=== PATIENT | female | born 1965 | race Caucasian/White ===

== ENCOUNTER 2023-05-12 14:52 | Inpatient (IN) | payer MEDICAID ==
[~2023-05-12] VITALS: Ht 160 cm; Wt 61.7 kg
[2023-05-12 15:45] LABS: BASOPHILS % 0.2 % (0.0-2.0); DIFFERENTIAL COMMENT 0; HEMATOCRIT. 40.7 % (36.0-48.0); HEMOGLOBIN. 13.7 g/dL (12.0-16.0); MEAN CORPUSCULAR HEMOGLOBIN 35.6 pg (28.0-32.0); MEAN CORPUSCULAR HGB CONC 33.6 g/dL (31.0-37.0); MEAN CORPUSCULAR VOLUME 105.9 fL (81.0-99.0); MEAN PLATELET VOLUME 8.6 fl (7.4-10.4); MONOCYTES % 11.4 % (2.0-8.0); NEUTROPHILS % 74.4 % (40.0-76.0); PLATELET 171 x1000/uL (130-400); RED BLOOD CELL COUNT 3.84 mill/uL (4.2-5.4); RED CELL DISTRIBUTION WIDTH 13.9 % (11.6-14.6); WHITE BLOOD COUNT 5.5 x1000/uL (4.5-11.0)
[2023-05-12 15:53] LABS: CHLORIDE 102 mEq/L (98-107); INDEX HEMOLYSI 1 (1-3); INDEX ICTERIC 1 (1-4); INDEX LIPEMIC 1 (1-3); POTASSIUM 3.5 mEq/L (3.5-5.1); SODIUM 132 mEq/L (136-145)
[2023-05-12 16:02] LABS: ALANINE AMINOTRANSFERASE 66 IU/L (13-61); ALBUMIN 2.7 g/dL (3.4-5.0); ASPARTATE AMINOTRANSFERASE 100 IU/L (15-37); BILIRUBIN TOTAL 0.4 mg/dL (0.1-1.0); CARBON DIOXIDE 22 mEq/L (21-32); CREATININE 0.7 mg/dL (0.6-1.3); GLUCOSE 210 mg/dL (70-105); NT PRO B-TYPE NATRIURETIC PEP 226 pg/mL (5-125); PROTEIN TOTAL 7.4 g/dL (6.0-8.3); TROPONIN I HIGH SENSITIVITY 7 ng/L (<54); UREA NITROGEN BLOOD 11 mg/dL (7-21)
[2023-05-12] MEDS ORDERED: AZITHROMYCIN 500 MG in DEXT 5% WATER 250 ML IV SCH ×2 (18:00→20:30)
[2023-05-12] MEDS ORDERED: CEFTRIAXONE 1GM PREMIX 50 ML IV ONE (18:00)
[2023-05-12] MEDS ORDERED: AZITHROMYCIN 500MG/250ML 250 ML IV SCH (18:15)
[2023-05-12] MEDS ORDERED: LACTATED RINGERS 1,000 ML IV SCH (18:15)
[2023-05-12] MEDS ORDERED: ACETAMINOPHEN 650MG SUPP PR PRN ×2 (20:15)
[2023-05-12] MEDS ORDERED: PANTOPRAZOLE SODIUM 40 MG/VIAL IV NR (20:15)
[2023-05-12] MEDS ORDERED: MAGNESIUM/ALUMINUM HYDROXIDE/SIMETHICONE 30ML UDC PO PRN (20:15)
[2023-05-12] MEDS ORDERED: CLONIDINE 0.1MG TABLET PO PRN (20:15)
[2023-05-12] MEDS ORDERED: DOCUSATE SODIUM 100MG CAPSULE PO PRN (20:15)
[2023-05-12] MEDS ORDERED: DEXTROSE 50% WATER 50ML SYRINGE IV PRN (20:30)
[2023-05-12] MEDS: SODIUM CHLORIDE 0.9% 1,000 ML IV SCH ×2 (20:45→21:17)
[2023-05-12] MEDS: DEXAMETHASONE 10 MG/ML VIAL IV SCH (21:07)
[2023-05-12] MEDS: BLOOD SUGAR DIAGNOSTIC STRIP TEST SCH (21:16)
[2023-05-12] MEDS: ENOXAPARIN 80MG/0.8ML SYR SUBCUT SCH (21:35)
[2023-05-12] MEDS: INSULIN LISPRO 100 UNITS/ML SUBCUT SCH (21:47)
[2023-05-12 21:55] LABS: INDEX HEMOLYSI 1 (1-3)
[2023-05-12 22:04] LABS: CREATINE KINASE 103 IU/L (26-192); CREATINE KINASE MB FRACTION < 1.0 ng/mL (0.5-3.6); D-DIMER 2.17 mg/L FEU (<0.50); PARTIAL THROMBOPLASTIN TIME 30.2 sec (23.4-31.0); PROTHROMBIN TIME 10.5 sec (9.6-11.0); TROPONIN I HIGH SENSITIVITY 7 ng/L (<54)
[2023-05-12 22:07] LABS: LACTIC ACID 4.7 mmol/L (0.4-2.0)
[2023-05-13] VITALS (7 sets, daily range): BP systolic 110–136; BP diastolic 58–71; PULSE 60–80; RESP 16–22; TEMP 96–98.1; O2SAT 95
[2023-05-13] MEDS: IPRATROPIUM/ALBUTEROL 0.5-3(2.5)MG/3ML NEB HHN SCH ×2 (02:01→09:18)
[2023-05-13 06:42] LABS: BG CARBOXYHEMOGLOBIN 0.7 % (0.5-1.5); BG DEOXYHEMOGLOBIN 5.9 % (0.0-5.0); BG HCO3 ACT 17.1 mmol/L (22.0-26.0); BG METHEMOGLOBIN 0.2 % (0.0-1.5); BG OXYHEMOGLOBIN 93.2 % (94.0-97.0); BG PCO2 30.8 mmHg (35.0-45.0); BG PH 7.363 (7.350-7.450); BG SAMPLE SITE RIGHT BRACHIAL; BG TOTAL HEMOGLOBIN 14.4 g/dL (12.0-18.0); BG VENT MODE NASAL CANNULA
[2023-05-13] MEDS: BLOOD SUGAR DIAGNOSTIC STRIP TEST SCH ×4 (07:48→21:00)
[2023-05-13] MEDS: ENOXAPARIN 80MG/0.8ML SYR SUBCUT SCH (08:37)
[2023-05-13] MEDS: DEXAMETHASONE 10 MG/ML VIAL IV SCH (08:37)
[2023-05-13] MEDS: INSULIN LISPRO 100 UNITS/ML SUBCUT SCH ×4 (08:54→21:22)
[2023-05-13 09:25] LABS: BASOPHILS % 0.1 % (0.0-2.0); DIFFERENTIAL COMMENT 0; HEMATOCRIT. 41.8 % (36.0-48.0); HEMOGLOBIN. 14.3 g/dL (12.0-16.0); LYMPHOCYTES % 17.2 % (20.0-50.0); MEAN CORPUSCULAR HEMOGLOBIN 36.3 pg (28.0-32.0); MEAN CORPUSCULAR HGB CONC 34.4 g/dL (31.0-37.0); MEAN CORPUSCULAR VOLUME 105.5 fL (81.0-99.0); MEAN PLATELET VOLUME 8.8 fl (7.4-10.4); MONOCYTES % 6.7 % (2.0-8.0); PLATELET 167 x1000/uL (130-400); RED BLOOD CELL COUNT 3.96 mill/uL (4.2-5.4); WHITE BLOOD COUNT 3.3 x1000/uL (4.5-11.0)
[2023-05-13 09:44] LABS: CHLORIDE 103 mEq/L (98-107); INDEX HEMOLYSI 1 (1-3); INDEX ICTERIC 1 (1-4); INDEX LIPEMIC 1 (1-3); POTASSIUM 4.5 mEq/L (3.5-5.1); SODIUM 133 mEq/L (136-145)
[2023-05-13 10:00] LABS: ALANINE AMINOTRANSFERASE 61 IU/L (13-61); ALBUMIN 2.6 g/dL (3.4-5.0); ASPARTATE AMINOTRANSFERASE 102 IU/L (15-37); BILIRUBIN TOTAL 0.4 mg/dL (0.1-1.0); CALCIUM 8.1 mg/dL (8.5-10.1); CARBON DIOXIDE 22 mEq/L (21-32); CHOLESTEROL 154 mg/dL (<200); CREATINE KINASE 101 IU/L (26-192); CREATINE KINASE MB FRACTION < 1.0 ng/mL (0.5-3.6); CREATININE 0.7 mg/dL (0.6-1.3); GLUCOSE 226 mg/dL (70-105); HDL CHOLESTEROL 80 mg/dL (40-59); LDL CHOLESTEROL 75 mg/dL (5-100); PROTEIN TOTAL 7.5 g/dL (6.0-8.3); T4 FREE 1.17 ng/dL (0.76-1.46); THYROID STIMULATING HORMONE 0.33 uIU/mL (0.36-3.74); TRIGLYCERIDE 76 mg/dL (0-150); TROPONIN I HIGH SENSITIVITY 6 ng/L (<54); UREA NITROGEN BLOOD 12 mg/dL (7-21)
[2023-05-13] MEDS ORDERED: IPRATROPIUM/ALBUTEROL 0.5-3(2.5)MG/3ML NEB HHN PRN (13:00)
[2023-05-13] MEDS ORDERED: CEFTRIAXONE 1,000 MG in DEXTROSE 5% WATER 50 ML IV SCH ×2 (17:00→18:00)
[2023-05-13] MEDS ORDERED: AZITHROMYCIN 500 MG in DEXT 5% WATER 250 ML IV SCH (18:00)
[2023-05-13] MEDS ORDERED: AZITHROMYCIN 500MG/250ML 250 ML IV SCH (18:15)
[2023-05-13] MEDS: HYDROCODONE/ACETAMINOPHEN 5/325MG TABLET PO PRN (19:03)
[2023-05-13] MEDS ORDERED: AMIT10TA7 GT (19:08)
[2023-05-13] MEDS ORDERED: METF-873 PO (19:08)
[2023-05-13] MEDS ORDERED: BENA20TA77 PO (19:08)
[2023-05-13] MEDS ORDERED: CELE200C PO (19:08)
[2023-05-13] MEDS ORDERED: VANCOMYCIN 1.25GM PMX (XELLIA) 250 ML IV NR (20:30)
[2023-05-14] VITALS: BP 119/80; PULSE 61; RESP 18; TEMP 96.9
[2023-05-14] MEDS ORDERED: ZOLPIDEM TARTRATE 5MG TABLET PO NR (00:30)
[2023-05-14 04:10] VITALS: BP 110/63; PULSE 76; RESP 19; TEMP 97.1
[2023-05-14] MEDS: BLOOD SUGAR DIAGNOSTIC STRIP TEST SCH ×4 (06:46→20:41)
[2023-05-14 07:18] LABS: BASOPHILS % 0.1 % (0.0-2.0); DIFFERENTIAL COMMENT 0; HEMATOCRIT. 41.2 % (36.0-48.0); HEMOGLOBIN. 14.1 g/dL (12.0-16.0); LYMPHOCYTES % 9.4 % (20.0-50.0); MEAN CORPUSCULAR HGB CONC 34.2 g/dL (31.0-37.0); MEAN CORPUSCULAR VOLUME 105.1 fL (81.0-99.0); MEAN PLATELET VOLUME 8.9 fl (7.4-10.4); MONOCYTES % 10.3 % (2.0-8.0); NEUTROPHILS % 80.2 % (40.0-76.0); PLATELET 183 x1000/uL (130-400); RED BLOOD CELL COUNT 3.92 mill/uL (4.2-5.4); RED CELL DISTRIBUTION WIDTH 13.9 % (11.6-14.6); WHITE BLOOD COUNT 10.5 x1000/uL (4.5-11.0)
[2023-05-14 08:00] VITALS: BP 114/60; PULSE 85; RESP 20; TEMP 96.4
[2023-05-14] MEDS ORDERED: VANCOMYCIN 750MG PREMIX 150 ML IV SCH (08:00)
[2023-05-14 08:10] LABS: CHLORIDE 105 mEq/L (98-107); INDEX HEMOLYSI 1 (1-3); INDEX ICTERIC 1 (1-4); INDEX LIPEMIC 1 (1-3); POTASSIUM 4.4 mEq/L (3.5-5.1); SODIUM 139 mEq/L (136-145)
[2023-05-14] MEDS: INSULIN LISPRO 100 UNITS/ML SUBCUT SCH ×4 (08:10→20:41)
[2023-05-14 08:21] LABS: ALANINE AMINOTRANSFERASE 59 IU/L (13-61); ALBUMIN 2.6 g/dL (3.4-5.0); ASPARTATE AMINOTRANSFERASE 110 IU/L (15-37); BILIRUBIN TOTAL 0.6 mg/dL (0.1-1.0); CALCIUM 8.5 mg/dL (8.5-10.1); CARBON DIOXIDE 22 mEq/L (21-32); CREATININE 0.7 mg/dL (0.6-1.3); GLUCOSE 132 mg/dL (70-105); PROTEIN TOTAL 7.1 g/dL (6.0-8.3); UREA NITROGEN BLOOD 15 mg/dL (7-21)
[2023-05-14 08:29] LABS: CLARITY URINE CLEAR (CLEAR); COLOR URINE YELLOW (YELLOW); GLUCOSE URINE NEGATIVE (NEGATIVE); KETONES URINE NEGATIVE (NEGATIVE); LEUKOCYTE ESTERASE URINE NEGATIVE (NEGATIVE); NITRITE URINE NEGATIVE (NEGATIVE); OCCULT BLOOD URINE NEGATIVE (NEGATIVE); PH URINE 6.5 (4.5-8.0); PROTEIN URINE NEGATIVE (NEGATIVE); SPECIFIC GRAVITY URINE 1.024 (1.005-1.030); UROBILINOGEN URINE 0.2 E.U./dL (0.2-1.0)
[2023-05-14 08:58] LABS: PHOSPHORUS 3.4 mg/dL (2.5-4.9)
[2023-05-14 09:00] LABS: *AMPHETAMINES SCREEN URINE NEGATIVE (NEGATIVE); *BARBITURATES SCREEN URINE NEGATIVE (NEGATIVE); *BENZODIAZEPINES SCREEN URINE NEGATIVE (NEGATIVE); *COCAINE SCREEN URINE NEGATIVE (NEGATIVE); CANNABINOID URINE SCREEN NEGATIVE (NEGATIVE); ECSTASY MDMA SCREEN URINE NEGATIVE (NEGATIVE); METHADONE URINE SCREEN NEGATIVE (NEGATIVE); OPIATES URINE SCREEN PRESUMTIVE POSITIVE (NEGATIVE); PHENCYCLIDINE URINE SCREEN NEGATIVE (NEGATIVE)
[2023-05-14] MEDS: DEXAMETHASONE 10 MG/ML VIAL IV SCH (09:17)
[2023-05-14] MEDS: ENOXAPARIN 40MG/0.4ML SYR SUBCUT SCH (09:18)
[2023-05-14 12:00] VITALS: BP 119/61; PULSE 78; RESP 20; TEMP 96.4
[2023-05-14 16:00] VITALS: BP 122/63; PULSE 79; RESP 20; TEMP 97.2
[2023-05-14 18:15] LABS: FOLIC ACID (FOLATE) SERUM 18.5 ng/mL (>5.38)
[2023-05-14 20:00] VITALS: BP 111/58; PULSE 72; RESP 19; TEMP 98.5
[2023-05-14] MEDS: HYDROCODONE/ACETAMINOPHEN 5/325MG TABLET PO PRN (20:16)
[2023-05-14] MEDS: FAMOTIDINE 20MG TABLET PO SCH (20:16)
[2023-05-14] MEDS: GUAIFENESIN 200MG/10ML SUGAR FREE UDC PO PRN (20:40)
[2023-05-15] VITALS: BP 120/62; PULSE 67; RESP 18; TEMP 97.6
[2023-05-15] MEDS: BENZONATATE 100MG CAPSULE PO PRN ×2 (01:58→19:02)
[2023-05-15 04:00] VITALS: BP 107/50; PULSE 68; RESP 18; TEMP 97.8
[2023-05-15] MEDS: HYDROCODONE/ACETAMINOPHEN 5/325MG TABLET PO PRN ×2 (06:18→20:56)
[2023-05-15] MEDS: BLOOD SUGAR DIAGNOSTIC STRIP TEST SCH ×4 (06:46→21:24)
[2023-05-15 08:00] VITALS: BP 97/56; PULSE 86; RESP 20; TEMP 98.1
[2023-05-15] MEDS: INSULIN LISPRO 100 UNITS/ML SUBCUT SCH ×4 (08:10→21:53)
[2023-05-15] MEDS: FAMOTIDINE 20MG TABLET PO SCH ×2 (09:33→20:56)
[2023-05-15] MEDS: ENOXAPARIN 40MG/0.4ML SYR SUBCUT SCH (09:34)
[2023-05-15] MEDS: DEXAMETHASONE 10 MG/ML VIAL IV SCH (09:34)
[2023-05-15 10:01] LABS: BG BASE EXCESS -0.3 mmol/L (-2.0-2.0); BG CARBOXYHEMOGLOBIN 0.5 % (0.5-1.5); BG FRACTION INSPIRED OXYGEN 44; BG HCO3 ACT 22.7 mmol/L (22.0-26.0); BG OXYGEN SATURATION 76.9 % (92.0-98.5); BG OXYHEMOGLOBIN 76.5 % (94.0-97.0); BG PCO2 32.4 mmHg (35.0-45.0); BG PH 7.464 (7.350-7.450); BG PO2 39.7 mmHg (75.0-100.0); BG SAMPLE SITE RIGHT RADIAL; BG TOTAL HEMOGLOBIN 13.3 g/dL (12.0-18.0); BG VENT MODE NASAL CANNULA
[2023-05-15] MEDS ORDERED: FUROSEMIDE 20MG/2ML VIAL IVP SCH (10:30)
[2023-05-15 12:00] VITALS: BP 115/61; PULSE 70; RESP 20; TEMP 98.1
[2023-05-15 12:09] LABS: BG BASE EXCESS 1.7 mmol/L (-2.0-2.0); BG CARBOXYHEMOGLOBIN 0.7 % (0.5-1.5); BG DEOXYHEMOGLOBIN 7.5 % (0.0-5.0); BG HCO3 ACT 25.4 mmol/L (22.0-26.0); BG METHEMOGLOBIN 0.1 % (0.0-1.5); BG OXYGEN SATURATION 92.4 % (92.0-98.5); BG OXYHEMOGLOBIN 91.7 % (94.0-97.0); BG PCO2 37.1 mmHg (35.0-45.0); BG PH 7.453 (7.350-7.450); BG PO2 65.7 mmHg (75.0-100.0); BG SAMPLE SITE RIGHT RADIAL; BG TOTAL HEMOGLOBIN 14.5 g/dL (12.0-18.0); BG VENT MODE MASK - NRB
[2023-05-15] MEDS: METHYLPREDNISOLONE SOD SUCC 125MG/2ML (ACT-O-VIAL) IV SCH ×2 (13:55→20:57)
[2023-05-15] MEDS: GUAIFENESIN 200MG/10ML SUGAR FREE UDC PO PRN (13:55)
[2023-05-15 14:04] LABS: HEMATOCRIT. 41.9 % (36.0-48.0); HEMOGLOBIN. 14.2 g/dL (12.0-16.0); MEAN CORPUSCULAR HEMOGLOBIN 35.3 pg (28.0-32.0); MEAN CORPUSCULAR HGB CONC 33.9 g/dL (31.0-37.0); MEAN CORPUSCULAR VOLUME 104.2 fL (81.0-99.0); MEAN PLATELET VOLUME 9.7 fl (7.4-10.4); PLATELET 173 x1000/uL (130-400); RED BLOOD CELL COUNT 4.02 mill/uL (4.2-5.4); RED CELL DISTRIBUTION WIDTH 13.8 % (11.6-14.6); WHITE BLOOD COUNT 10.1 x1000/uL (4.5-11.0)
[2023-05-15 14:22] LABS: DIFFERENTIAL COMMENT 1
[2023-05-15] MEDS ORDERED: NALOXONE HCL 0.4MG/ML VIAL IV PRN (15:00)
[2023-05-15 15:32] LABS: CHLORIDE 105 mEq/L (98-107); INDEX HEMOLYSI 1 (1-3); INDEX ICTERIC 1 (1-4); INDEX LIPEMIC 1 (1-3); SODIUM 139 mEq/L (136-145)
[2023-05-15 16:00] VITALS: BP 120/67; PULSE 77; RESP 20; TEMP 98
[2023-05-15 16:13] LABS: ALANINE AMINOTRANSFERASE 63 IU/L (13-61); ALBUMIN 2.7 g/dL (3.4-5.0); ASPARTATE AMINOTRANSFERASE 102 IU/L (15-37); BILIRUBIN TOTAL 0.8 mg/dL (0.1-1.0); CALCIUM 8.1 mg/dL (8.5-10.1); CARBON DIOXIDE 26 mEq/L (21-32); CREATININE 0.6 mg/dL (0.6-1.3); GLUCOSE 188 mg/dL (70-105); PROTEIN TOTAL 7.3 g/dL (6.0-8.3); UREA NITROGEN BLOOD 15 mg/dL (7-21)
[2023-05-15 20:00] VITALS: BP 122/53; PULSE 68; RESP 18; TEMP 97.7
[2023-05-16] VITALS (12 sets, daily range): BP systolic 107–144; BP diastolic 47–89; PULSE 58–68; RESP 13–31; TEMP 96.3–98.1; O2SAT 94
[2023-05-16 04:08] LABS: PLATELET ESTIMATE NORMAL
[2023-05-16] MEDS: ONDANSETRON HCL 4MG/2ML INJ IV PRN (04:23)
[2023-05-16] MEDS: HYDROCODONE/ACETAMINOPHEN 5/325MG TABLET PO PRN (04:23)
[2023-05-16 06:40] LABS: HEMATOCRIT. 38.2 % (36.0-48.0); HEMOGLOBIN. 13.1 g/dL (12.0-16.0); MEAN CORPUSCULAR HEMOGLOBIN 35.5 pg (28.0-32.0); MEAN CORPUSCULAR HGB CONC 34.2 g/dL (31.0-37.0); MEAN CORPUSCULAR VOLUME 103.8 fL (81.0-99.0); MEAN PLATELET VOLUME 9.5 fl (7.4-10.4); PLATELET 160 x1000/uL (130-400); RED BLOOD CELL COUNT 3.68 mill/uL (4.2-5.4); RED CELL DISTRIBUTION WIDTH 13.6 % (11.6-14.6); WHITE BLOOD COUNT 9.5 x1000/uL (4.5-11.0)
[2023-05-16 06:43] LABS: DIFFERENTIAL COMMENT 1
[2023-05-16] MEDS: INSULIN LISPRO 100 UNITS/ML SUBCUT SCH ×4 (06:52→21:00)
[2023-05-16] MEDS: METHYLPREDNISOLONE SOD SUCC 125MG/2ML (ACT-O-VIAL) IV SCH ×3 (06:52→21:11)
[2023-05-16 06:54] LABS: CHLORIDE 102 mEq/L (98-107); INDEX HEMOLYSI 1 (1-3); INDEX ICTERIC 1 (1-4); INDEX LIPEMIC 1 (1-3); POTASSIUM 4.1 mEq/L (3.5-5.1); SODIUM 137 mEq/L (136-145)
[2023-05-16] MEDS: BLOOD SUGAR DIAGNOSTIC STRIP TEST SCH ×4 (06:54→21:12)
[2023-05-16 07:04] LABS: ALANINE AMINOTRANSFERASE 58 IU/L (13-61); ALBUMIN 2.5 g/dL (3.4-5.0); ASPARTATE AMINOTRANSFERASE 76 IU/L (15-37); CALCIUM 7.8 mg/dL (8.5-10.1); CARBON DIOXIDE 24 mEq/L (21-32); CREATININE 0.5 mg/dL (0.6-1.3); GLUCOSE 223 mg/dL (70-105); PROTEIN TOTAL 6.7 g/dL (6.0-8.3); UREA NITROGEN BLOOD 16 mg/dL (7-21)
[2023-05-16 09:09] LABS: BG BASE EXCESS 0.8 mmol/L (-2.0-2.0); BG CARBOXYHEMOGLOBIN 0.5 % (0.5-1.5); BG DEOXYHEMOGLOBIN 5.4 % (0.0-5.0); BG FRACTION INSPIRED OXYGEN 100; BG HCO3 ACT 25.1 mmol/L (22.0-26.0); BG METHEMOGLOBIN 0.1 % (0.0-1.5); BG OXYGEN SATURATION 94.6 % (92.0-98.5); BG PCO2 39.1 mmHg (35.0-45.0); BG PH 7.426 (7.350-7.450); BG PO2 76.9 mmHg (75.0-100.0); BG SAMPLE SITE RIGHT RADIAL; BG TOTAL HEMOGLOBIN 13.6 g/dL (12.0-18.0); BG VENT MODE MASK - NRB
[2023-05-16] MEDS: FAMOTIDINE 20MG TABLET PO SCH ×2 (09:43→21:11)
[2023-05-16] MEDS: ENOXAPARIN 40MG/0.4ML SYR SUBCUT SCH (09:44)
[2023-05-16] MEDS: INSULIN GLARGINE 100 UNITS/ML SUBCUT SCH (10:00)
[2023-05-16 10:35] LABS: PLATELET ESTIMATE NORMAL
[2023-05-16] MEDS: BENZONATATE 100MG CAPSULE PO PRN (13:37)
[2023-05-16] MEDS ORDERED: LOPERAMIDE HCL 2MG CAPSULE PO NR (13:45)
[2023-05-16] MEDS ORDERED: FUROSEMIDE 40MG/4ML VIAL IVP NR (13:45)
[2023-05-16 14:04] LABS: BG BASE EXCESS -0.1 mmol/L (-2.0-2.0); BG CARBOXYHEMOGLOBIN 0.5 % (0.5-1.5); BG DEOXYHEMOGLOBIN 11.3 % (0.0-5.0); BG HCO3 ACT 25.4 mmol/L (22.0-26.0); BG METHEMOGLOBIN 0.1 % (0.0-1.5); BG OXYGEN SATURATION 88.6 % (92.0-98.5); BG OXYHEMOGLOBIN 88.1 % (94.0-97.0); BG PCO2 44.6 mmHg (35.0-45.0); BG PH 7.374 (7.350-7.450); BG PO2 60.9 mmHg (75.0-100.0); BG SAMPLE SITE RIGHT RADIAL; BG TOTAL HEMOGLOBIN 14.4 g/dL (12.0-18.0); BG VENT MODE MASK - NRB
[2023-05-16 18:02] LABS: BG BASE EXCESS 4.1 mmol/L (-2.0-2.0); BG CARBOXYHEMOGLOBIN 0.6 % (0.5-1.5); BG DEOXYHEMOGLOBIN 12.1 % (0.0-5.0); BG FRACTION INSPIRED OXYGEN 100; BG HCO3 ACT 28.1 mmol/L (22.0-26.0); BG METHEMOGLOBIN 0.3 % (0.0-1.5); BG OXYGEN SATURATION 87.8 % (92.0-98.5); BG PH 7.465 (7.350-7.450); BG PO2 54.1 mmHg (75.0-100.0); BG SAMPLE SITE LEFT RADIAL; BG TOTAL HEMOGLOBIN 14.4 g/dL (12.0-18.0); BG VENT MODE MASK - NRB
[2023-05-16] MEDS: KETOROLAC 15MG/ML VIAL IV PRN (18:34)
[2023-05-16] MEDS: BUDESONIDE 0.5MG/2ML NEB HHN SCH (21:23)
[2023-05-17] VITALS (80 sets, daily range): BP systolic 74–150; BP diastolic 48–130; PULSE 50–91; RESP 12–39; TEMP 98.3–100.2; O2SAT 87
[2023-05-17 05:23] LABS: HEMATOCRIT. 37.7 % (36.0-48.0); HEMOGLOBIN. 12.9 g/dL (12.0-16.0); MEAN CORPUSCULAR HEMOGLOBIN 35.4 pg (28.0-32.0); MEAN CORPUSCULAR HGB CONC 34.4 g/dL (31.0-37.0); MEAN CORPUSCULAR VOLUME 102.9 fL (81.0-99.0); MEAN PLATELET VOLUME 9.2 fl (7.4-10.4); PLATELET 155 x1000/uL (130-400); RED BLOOD CELL COUNT 3.66 mill/uL (4.2-5.4); WHITE BLOOD COUNT 9.3 x1000/uL (4.5-11.0)
[2023-05-17 06:33] LABS: DIFFERENTIAL COMMENT 1
[2023-05-17 06:35] LABS: CHLORIDE 100 mEq/L (98-107); INDEX HEMOLYSI 1 (1-3); INDEX ICTERIC 1 (1-4); INDEX LIPEMIC 1 (1-3); POTASSIUM 4.1 mEq/L (3.5-5.1); SODIUM 134 mEq/L (136-145)
[2023-05-17] MEDS: BLOOD SUGAR DIAGNOSTIC STRIP TEST SCH ×4 (06:40→21:42)
[2023-05-17] MEDS: METHYLPREDNISOLONE SOD SUCC 125MG/2ML (ACT-O-VIAL) IV SCH ×3 (06:49→20:33)
[2023-05-17] MEDS: INSULIN LISPRO 100 UNITS/ML SUBCUT SCH ×4 (06:50→21:51)
[2023-05-17 06:55] LABS: ALANINE AMINOTRANSFERASE 55 IU/L (13-61); ALBUMIN 2.4 g/dL (3.4-5.0); ASPARTATE AMINOTRANSFERASE 50 IU/L (15-37); BILIRUBIN TOTAL 0.7 mg/dL (0.1-1.0); CALCIUM 7.5 mg/dL (8.5-10.1); CARBON DIOXIDE 30 mEq/L (21-32); CREATININE 0.8 mg/dL (0.6-1.3); GLUCOSE 258 mg/dL (70-105); PROTEIN TOTAL 6.8 g/dL (6.0-8.3); UREA NITROGEN BLOOD 27 mg/dL (7-21)
[2023-05-17] MEDS: BUDESONIDE 0.5MG/2ML NEB HHN SCH ×2 (08:25→21:29)
[2023-05-17 08:36] LABS: PLATELET ESTIMATE NORMAL
[2023-05-17] MEDS: FAMOTIDINE 20MG TABLET PO SCH ×2 (09:02→20:33)
[2023-05-17] MEDS: ENOXAPARIN 40MG/0.4ML SYR SUBCUT SCH (09:02)
[2023-05-17] MEDS: INSULIN GLARGINE 100 UNITS/ML SUBCUT SCH (09:03)
[2023-05-17 10:42] LABS: BG BASE EXCESS 3.7 mmol/L (-2.0-2.0); BG CARBOXYHEMOGLOBIN 0.4 % (0.5-1.5); BG DEOXYHEMOGLOBIN 11.2 % (0.0-5.0); BG FRACTION INSPIRED OXYGEN 100; BG HCO3 ACT 28.2 mmol/L (22.0-26.0); BG METHEMOGLOBIN 0.2 % (0.0-1.5); BG OXYGEN SATURATION 88.7 % (92.0-98.5); BG OXYHEMOGLOBIN 88.2 % (94.0-97.0); BG PH 7.445 (7.350-7.450); BG PO2 56.4 mmHg (75.0-100.0); BG SAMPLE SITE RIGHT RADIAL; BG VENT MODE MASK - NRB
[2023-05-17] MEDS ORDERED: FUROSEMIDE 40MG/4ML VIAL IVP SCH (12:00)
[2023-05-17] MEDS ORDERED: ALBUTEROL 6.7GM HFA INHALER ORI SCH (12:00)
[2023-05-17] MEDS: ASCORBIC ACID 500 MG TABLET PO SCH ×2 (15:04→20:33)
[2023-05-17] MEDS: ZINC SULFATE 220 MG ( 50 ) CAPSULE PO SCH (15:04)
[2023-05-17] MEDS: CHOLECALCIFEROL (D3) 1000 UNIT TABLET PO SCH (15:04)
[2023-05-17] MEDS: THIAMINE HCL 100MG TABLET PO SCH (15:04)
[2023-05-17] MEDS ORDERED: NON FORMULARY PATIENT HOME MED XX SCH (21:30)
[2023-05-17] MEDS: BENZONATATE 100MG CAPSULE PO PRN (21:50)
[2023-05-17] MEDS: MELATONIN 3MG TABLET PO PRN (21:50)
[2023-05-18] VITALS (65 sets, daily range): BP systolic 107–152; BP diastolic 51–96; PULSE 51–70; RESP 16–39; TEMP 97.7–98.7; O2SAT 92
[2023-05-18] MEDS: ONDANSETRON HCL 4MG/2ML INJ IV PRN (02:07)
[2023-05-18 04:58] LABS: MEAN CORPUSCULAR HEMOGLOBIN 35.4 pg (28.0-32.0); MEAN CORPUSCULAR HGB CONC 34.1 g/dL (31.0-37.0); MEAN CORPUSCULAR VOLUME 103.9 fL (81.0-99.0); PLATELET 145 x1000/uL (130-400); RED BLOOD CELL COUNT 3.66 mill/uL (4.2-5.4); RED CELL DISTRIBUTION WIDTH 13.1 % (11.6-14.6); WHITE BLOOD COUNT 9.3 x1000/uL (4.5-11.0)
[2023-05-18 05:09] LABS: CHLORIDE 101 mEq/L (98-107); INDEX HEMOLYSI 1 (1-3); INDEX ICTERIC 1 (1-4); INDEX LIPEMIC 1 (1-3); POTASSIUM 4.7 mEq/L (3.5-5.1); SODIUM 133 mEq/L (136-145)
[2023-05-18 05:16] LABS: ALANINE AMINOTRANSFERASE 64 IU/L (13-61); ALBUMIN 2.3 g/dL (3.4-5.0); ASPARTATE AMINOTRANSFERASE 64 IU/L (15-37); CARBON DIOXIDE 31 mEq/L (21-32); CREATININE 0.6 mg/dL (0.6-1.3); GLUCOSE 300 mg/dL (70-105); PHOSPHORUS 3.1 mg/dL (2.5-4.9); PROTEIN TOTAL 6.8 g/dL (6.0-8.3); UREA NITROGEN BLOOD 23 mg/dL (7-21)
[2023-05-18] MEDS: METHYLPREDNISOLONE SOD SUCC 125MG/2ML (ACT-O-VIAL) IV SCH ×3 (05:54→22:00)
[2023-05-18] MEDS: BLOOD SUGAR DIAGNOSTIC STRIP TEST SCH ×4 (06:17→21:39)
[2023-05-18] MEDS: INSULIN LISPRO 100 UNITS/ML SUBCUT SCH ×4 (06:37→22:01)
[2023-05-18] MEDS: KETOROLAC 15MG/ML VIAL IV PRN ×2 (06:42→19:50)
[2023-05-18] MEDS: ZINC SULFATE 220 MG ( 50 ) CAPSULE PO SCH (08:37)
[2023-05-18] MEDS: THIAMINE HCL 100MG TABLET PO SCH (08:37)
[2023-05-18] MEDS: ASCORBIC ACID 500 MG TABLET PO SCH ×2 (08:37→20:33)
[2023-05-18] MEDS: CHOLECALCIFEROL (D3) 1000 UNIT TABLET PO SCH (08:37)
[2023-05-18] MEDS: ENOXAPARIN 40MG/0.4ML SYR SUBCUT SCH (08:37)
[2023-05-18] MEDS: FAMOTIDINE 20MG TABLET PO SCH ×2 (08:37→20:34)
[2023-05-18] MEDS: BUDESONIDE 0.5MG/2ML NEB HHN SCH ×2 (08:39→20:05)
[2023-05-18 09:10] LABS: BG BASE EXCESS 5.6 mmol/L (-2.0-2.0); BG CARBOXYHEMOGLOBIN 0.7 % (0.5-1.5); BG METHEMOGLOBIN 0.2 % (0.0-1.5); BG OXYGEN SATURATION 92.9 % (92.0-98.5); BG OXYHEMOGLOBIN 92.1 % (94.0-97.0); BG PCO2 43.1 mmHg (35.0-45.0); BG PH 7.461 (7.350-7.450); BG PO2 71.5 mmHg (75.0-100.0); BG SAMPLE SITE RIGHT RADIAL; BG TOTAL HEMOGLOBIN 13.1 g/dL (12.0-18.0); BG VENT MODE MASK - BIPAP
[2023-05-18] MEDS: INSULIN GLARGINE 100 UNITS/ML SUBCUT SCH (10:40)
[2023-05-18] MEDS ORDERED: NINT150C PO (11:48)
[2023-05-18] MEDS: OFEV 150 MG XX SCH ×2 (13:09→22:02)
[2023-05-18] MEDS: IPRATROPIUM/ALBUTEROL 0.5-3(2.5)MG/3ML NEB HHN SCH ×2 (14:20→20:05)
[2023-05-18] MEDS: MELATONIN 3MG TABLET PO PRN (20:34)
[2023-05-18] MEDS: BENZONATATE 100MG CAPSULE PO PRN (20:34)
[2023-05-19] VITALS (49 sets, daily range): BP systolic 100–154; BP diastolic 55–90; PULSE 54–86; RESP 15–39; TEMP 97.9–99; O2SAT 95–98
[2023-05-19] MEDS: IPRATROPIUM/ALBUTEROL 0.5-3(2.5)MG/3ML NEB HHN SCH ×5 (00:20→20:20)
[2023-05-19] MEDS: METHYLPREDNISOLONE SOD SUCC 125MG/2ML (ACT-O-VIAL) IV SCH ×2 (05:23→14:33)
[2023-05-19] MEDS: INSULIN LISPRO 100 UNITS/ML SUBCUT SCH ×4 (05:24→20:18)
[2023-05-19] MEDS: BLOOD SUGAR DIAGNOSTIC STRIP TEST SCH ×4 (05:54→21:00)
[2023-05-19] MEDS: BUDESONIDE 0.5MG/2ML NEB HHN SCH (08:25)
[2023-05-19 09:08] LABS: BG CARBOXYHEMOGLOBIN 0.8 % (0.5-1.5); BG DEOXYHEMOGLOBIN 7.1 % (0.0-5.0); BG FRACTION INSPIRED OXYGEN 80; BG OXYGEN SATURATION 92.8 % (92.0-98.5); BG OXYHEMOGLOBIN 92.1 % (94.0-97.0); BG PCO2 40.6 mmHg (35.0-45.0); BG PH 7.472 (7.350-7.450); BG PO2 67.6 mmHg (75.0-100.0); BG SAMPLE SITE RIGHT RADIAL; BG TOTAL HEMOGLOBIN 14.2 g/dL (12.0-18.0); BG TOTAL RESPIRATORY RATE 20 b/min; BG VENT MODE MASK - BIPAP
[2023-05-19] MEDS: FAMOTIDINE 20MG TABLET PO SCH ×2 (09:39→20:00)
[2023-05-19] MEDS: ASCORBIC ACID 500 MG TABLET PO SCH ×2 (09:39→20:01)
[2023-05-19] MEDS: ZINC SULFATE 220 MG ( 50 ) CAPSULE PO SCH (09:39)
[2023-05-19] MEDS: CHOLECALCIFEROL (D3) 1000 UNIT TABLET PO SCH (09:40)
[2023-05-19] MEDS: ENOXAPARIN 40MG/0.4ML SYR SUBCUT SCH (09:40)
[2023-05-19] MEDS: OFEV 150 MG XX SCH ×2 (09:41→20:00)
[2023-05-19] MEDS: INSULIN GLARGINE 100 UNITS/ML SUBCUT SCH (09:45)
[2023-05-19] MEDS: ACETYLCYSTEINE 100MG/ML 10% VIAL 4ML INH SCH (14:23)
[2023-05-19] MEDS: MELATONIN 3MG TABLET PO PRN (20:01)
[2023-05-20] VITALS (29 sets, daily range): BP systolic 100–154; BP diastolic 62–81; PULSE 57–72; RESP 17–31; TEMP 97.8–99; O2SAT 91–94
[2023-05-20] MEDS: ACETYLCYSTEINE 100MG/ML 10% VIAL 4ML INH SCH ×3 (00:02→15:29)
[2023-05-20] MEDS: IPRATROPIUM/ALBUTEROL 0.5-3(2.5)MG/3ML NEB HHN SCH ×5 (00:02→20:44)
[2023-05-20] MEDS: METHYLPREDNISOLONE SOD SUCC 125MG/2ML (ACT-O-VIAL) IV SCH ×4 (00:29→21:09)
[2023-05-20] MEDS ORDERED: HYDROCODONE/ACETAMINOPHEN 5/325MG TABLET PO NR (00:30)
[2023-05-20 05:16] LABS: CHLORIDE 102 mEq/L (98-107); HEMATOCRIT 39.3 % (36.0-48.0); HEMOGLOBIN 13.1 g/dL (12.0-16.0); INDEX HEMOLYSI 1 (1-3); INDEX ICTERIC 1 (1-4); INDEX LIPEMIC 1 (1-3); MEAN CORPUSCULAR HEMOGLOBIN 34.7 pg (28.0-32.0); MEAN CORPUSCULAR HGB CONC 33.4 g/dL (31.0-37.0); MEAN CORPUSCULAR VOLUME 104.1 fL (81.0-99.0); PLATELET 154 x1000/uL (130-400); POTASSIUM 5.1 mEq/L (3.5-5.1); RED BLOOD CELL COUNT 3.77 mill/uL (4.2-5.4); RED CELL DISTRIBUTION WIDTH 13.4 % (11.6-14.6); SODIUM 136 mEq/L (136-145); WHITE BLOOD COUNT 8.8 x1000/uL (4.5-11.0)
[2023-05-20 05:25] LABS: CALCIUM 7.2 mg/dL (8.5-10.1); CARBON DIOXIDE 32 mEq/L (21-32); CREATININE 0.6 mg/dL (0.6-1.3); GLUCOSE 208 mg/dL (70-105); PHOSPHORUS 3.2 mg/dL (2.5-4.9); UREA NITROGEN BLOOD 21 mg/dL (7-21)
[2023-05-20] MEDS: BLOOD SUGAR DIAGNOSTIC STRIP TEST SCH ×4 (06:30→21:06)
[2023-05-20] MEDS: INSULIN LISPRO 100 UNITS/ML SUBCUT SCH ×4 (07:55→21:07)
[2023-05-20] MEDS: ENOXAPARIN 40MG/0.4ML SYR SUBCUT SCH (09:45)
[2023-05-20] MEDS: OFEV 150 MG XX SCH ×2 (09:46→21:06)
[2023-05-20] MEDS: CHOLECALCIFEROL (D3) 1000 UNIT TABLET PO SCH (09:47)
[2023-05-20] MEDS: ASCORBIC ACID 500 MG TABLET PO SCH ×2 (09:47→21:04)
[2023-05-20] MEDS: ZINC SULFATE 220 MG ( 50 ) CAPSULE PO SCH (09:47)
[2023-05-20] MEDS: THIAMINE HCL 100MG TABLET PO SCH (09:47)
[2023-05-20] MEDS: FAMOTIDINE 20MG TABLET PO SCH ×2 (09:47→21:04)
[2023-05-20] MEDS: INSULIN GLARGINE 100 UNITS/ML SUBCUT SCH (09:50)
[2023-05-20] MEDS: BUDESONIDE 0.5MG/2ML NEB HHN SCH (20:43)
[2023-05-20] MEDS: ACETAMINOPHEN 325MG TABLET PO PRN (21:04)
[2023-05-20] MEDS: MELATONIN 3MG TABLET PO PRN (21:04)
[2023-05-20] MEDS: GUAIFENESIN 200MG/10ML SUGAR FREE UDC PO PRN ×2 (21:07→21:31)
[2023-05-20] MEDS: BENZONATATE 100MG CAPSULE PO PRN (21:31)
[2023-05-21] VITALS (45 sets, daily range): BP systolic 74–164; BP diastolic 47–118; PULSE 56–75; RESP 16–38; TEMP 97.8–99.8; O2SAT 91–97
[2023-05-21] MEDS: IPRATROPIUM/ALBUTEROL 0.5-3(2.5)MG/3ML NEB HHN SCH ×4 (00:33→20:34)
[2023-05-21 05:42] LABS: CALCIUM 7.6 mg/dL (8.5-10.1); CHLORIDE 103 mEq/L (98-107); INDEX HEMOLYSI 1 (1-3); INDEX ICTERIC 1 (1-4); INDEX LIPEMIC 1 (1-3); POTASSIUM 4.5 mEq/L (3.5-5.1); SODIUM 137 mEq/L (136-145)
[2023-05-21 05:43] LABS: HEMATOCRIT 40.9 % (36.0-48.0); HEMOGLOBIN 13.9 g/dL (12.0-16.0); MEAN CORPUSCULAR HEMOGLOBIN 35.7 pg (28.0-32.0); PLATELET 143 x1000/uL (130-400); RED BLOOD CELL COUNT 3.89 mill/uL (4.2-5.4); RED CELL DISTRIBUTION WIDTH 13.6 % (11.6-14.6); WHITE BLOOD COUNT 10.1 x1000/uL (4.5-11.0)
[2023-05-21 05:44] LABS: CARBON DIOXIDE 31 mEq/L (21-32); CREATININE 0.6 mg/dL (0.6-1.3); GLUCOSE 179 mg/dL (70-105); PHOSPHORUS 3.5 mg/dL (2.5-4.9); UREA NITROGEN BLOOD 19 mg/dL (7-21)
[2023-05-21] MEDS: BLOOD SUGAR DIAGNOSTIC STRIP TEST SCH ×4 (06:39→20:27)
[2023-05-21] MEDS: METHYLPREDNISOLONE SOD SUCC 125MG/2ML (ACT-O-VIAL) IV SCH ×3 (06:45→21:31)
[2023-05-21] MEDS: INSULIN LISPRO 100 UNITS/ML SUBCUT SCH ×4 (06:45→21:33)
[2023-05-21] MEDS: OFEV 150 MG XX SCH ×2 (08:00→20:26)
[2023-05-21] MEDS: THIAMINE HCL 100MG TABLET PO SCH (08:01)
[2023-05-21] MEDS: ZINC SULFATE 220 MG ( 50 ) CAPSULE PO SCH (08:01)
[2023-05-21] MEDS: ACETAMINOPHEN 325MG TABLET PO PRN ×2 (08:01→23:54)
[2023-05-21] MEDS: FAMOTIDINE 20MG TABLET PO SCH ×2 (08:01→20:26)
[2023-05-21] MEDS: ENOXAPARIN 40MG/0.4ML SYR SUBCUT SCH (08:01)
[2023-05-21] MEDS: CHOLECALCIFEROL (D3) 1000 UNIT TABLET PO SCH (08:01)
[2023-05-21] MEDS: ASCORBIC ACID 500 MG TABLET PO SCH ×2 (08:01→20:26)
[2023-05-21 08:27] LABS: BG BASE EXCESS 4.9 mmol/L (-2.0-2.0); BG CARBOXYHEMOGLOBIN 0.7 % (0.5-1.5); BG DEOXYHEMOGLOBIN 6.7 % (0.0-5.0); BG HCO3 ACT 28.2 mmol/L (22.0-26.0); BG METHEMOGLOBIN 0.3 % (0.0-1.5); BG OXYGEN SATURATION 93.2 % (92.0-98.5); BG OXYHEMOGLOBIN 92.3 % (94.0-97.0); BG PCO2 37.2 mmHg (35.0-45.0); BG PH 7.497 (7.350-7.450); BG PO2 68.8 mmHg (75.0-100.0); BG SAMPLE SITE RIGHT RADIAL; BG TOTAL HEMOGLOBIN 14.5 g/dL (12.0-18.0); BG VENT MODE VAPOTHERM
[2023-05-21] MEDS: INSULIN GLARGINE 100 UNITS/ML SUBCUT SCH (09:06)
[2023-05-21] MEDS: BUDESONIDE 0.5MG/2ML NEB HHN SCH ×2 (09:20→20:34)
[2023-05-21] MEDS: CEFEPIME 2,000 MG in DEXT 5% WATER 100 ML IV SCH ×2 (10:27→16:48)
[2023-05-21] MEDS: MELATONIN 3MG TABLET PO PRN (20:26)
[2023-05-21] MEDS: BENZONATATE 100MG CAPSULE PO PRN (20:26)
[2023-05-22] VITALS (94 sets, daily range): BP systolic 97–165; BP diastolic 46–111; PULSE 54–88; RESP 18–41; TEMP 98.2–98.9; O2SAT 90–94
[2023-05-22] MEDS: CEFEPIME 2,000 MG in DEXT 5% WATER 100 ML IV SCH ×3 (00:18→17:14)
[2023-05-22] MEDS: IPRATROPIUM/ALBUTEROL 0.5-3(2.5)MG/3ML NEB HHN SCH ×3 (00:28→20:15)
[2023-05-22] MEDS: ONDANSETRON HCL 4MG/2ML INJ IV PRN (01:47)
[2023-05-22 04:56] LABS: HEMATOCRIT 41.6 % (36.0-48.0); HEMOGLOBIN 14.1 g/dL (12.0-16.0); MEAN CORPUSCULAR HEMOGLOBIN 34.9 pg (28.0-32.0); MEAN CORPUSCULAR HGB CONC 33.8 g/dL (31.0-37.0); MEAN CORPUSCULAR VOLUME 103.1 fL (81.0-99.0); PLATELET 161 x1000/uL (130-400); RED BLOOD CELL COUNT 4.03 mill/uL (4.2-5.4); RED CELL DISTRIBUTION WIDTH 13.7 % (11.6-14.6); WHITE BLOOD COUNT 13.4 x1000/uL (4.5-11.0)
[2023-05-22 05:08] LABS: CHLORIDE 102 mEq/L (98-107); INDEX HEMOLYSI 1 (1-3); INDEX ICTERIC 1 (1-4); INDEX LIPEMIC 1 (1-3); POTASSIUM 4.9 mEq/L (3.5-5.1); SODIUM 135 mEq/L (136-145)
[2023-05-22 05:15] LABS: ALANINE AMINOTRANSFERASE 91 IU/L (13-61); ALBUMIN 2.2 g/dL (3.4-5.0); ASPARTATE AMINOTRANSFERASE 45 IU/L (15-37); BILIRUBIN TOTAL 1.3 mg/dL (0.1-1.0); CALCIUM 7.8 mg/dL (8.5-10.1); CARBON DIOXIDE 29 mEq/L (21-32); CREATININE 0.6 mg/dL (0.6-1.3); GLUCOSE 206 mg/dL (70-105); PROTEIN TOTAL 6.5 g/dL (6.0-8.3); UREA NITROGEN BLOOD 20 mg/dL (7-21)
[2023-05-22] MEDS: METHYLPREDNISOLONE SOD SUCC 125MG/2ML (ACT-O-VIAL) IV SCH ×3 (05:33→21:39)
[2023-05-22] MEDS: BLOOD SUGAR DIAGNOSTIC STRIP TEST SCH ×4 (05:54→21:00)
[2023-05-22] MEDS: INSULIN LISPRO 100 UNITS/ML SUBCUT SCH ×4 (06:29→21:44)
[2023-05-22] MEDS: ENOXAPARIN 40MG/0.4ML SYR SUBCUT SCH (08:02)
[2023-05-22] MEDS: ZINC SULFATE 220 MG ( 50 ) CAPSULE PO SCH (08:02)
[2023-05-22] MEDS: CHOLECALCIFEROL (D3) 1000 UNIT TABLET PO SCH (08:02)
[2023-05-22] MEDS: ASCORBIC ACID 500 MG TABLET PO SCH (08:02)
[2023-05-22] MEDS: FAMOTIDINE 20MG TABLET PO SCH ×2 (08:02→21:30)
[2023-05-22] MEDS: THIAMINE HCL 100MG TABLET PO SCH (08:02)
[2023-05-22] MEDS: OFEV 150 MG XX SCH ×2 (08:03→21:39)
[2023-05-22 09:45] LABS: BG BASE EXCESS 2.5 mmol/L (-2.0-2.0); BG CARBOXYHEMOGLOBIN 1.2 % (0.5-1.5); BG DEOXYHEMOGLOBIN 13.1 % (0.0-5.0); BG FRACTION INSPIRED OXYGEN 100; BG METHEMOGLOBIN 0.1 % (0.0-1.5); BG OXYGEN SATURATION 86.7 % (92.0-98.5); BG OXYHEMOGLOBIN 85.6 % (94.0-97.0); BG PCO2 36.5 mmHg (35.0-45.0); BG SAMPLE SITE RIGHT BRACHIAL; BG TOTAL HEMOGLOBIN 14.3 g/dL (12.0-18.0); BG VENT MODE HIGH FLOW
[2023-05-22] MEDS: INSULIN GLARGINE 100 UNITS/ML SUBCUT SCH (10:21)
[2023-05-22 12:40] LABS: DIFFERENTIAL COMMENT 1; HEMATOCRIT. 41.8 % (36.0-48.0); MEAN CORPUSCULAR HEMOGLOBIN 34.8 pg (28.0-32.0); MEAN CORPUSCULAR HGB CONC 33.4 g/dL (31.0-37.0); MEAN CORPUSCULAR VOLUME 104.1 fL (81.0-99.0); PLATELET 165 x1000/uL (130-400); RED BLOOD CELL COUNT 4.01 mill/uL (4.2-5.4); RED CELL DISTRIBUTION WIDTH 13.8 % (11.6-14.6); WHITE BLOOD COUNT 13.1 x1000/uL (4.5-11.0)
[2023-05-22] MEDS: LORATADINE 10MG TABLET PO SCH (14:42)
[2023-05-22 15:26] LABS: PLATELET ESTIMATE NORMAL
[2023-05-22] MEDS: CALCIUM CARBONATE/VITAMIN D3 500MG TABLET PO SCH (17:14)
[2023-05-22 19:17] LABS: CLARITY URINE CLEAR (CLEAR); COLOR URINE YELLOW (YELLOW); GLUCOSE URINE NEGATIVE (NEGATIVE); KETONES URINE NEGATIVE (NEGATIVE); LEUKOCYTE ESTERASE URINE NEGATIVE (NEGATIVE); NITRITE URINE NEGATIVE (NEGATIVE); OCCULT BLOOD URINE NEGATIVE (NEGATIVE); PH URINE 6.5 (4.5-8.0); PROTEIN URINE NEGATIVE (NEGATIVE); SPECIFIC GRAVITY URINE 1.012 (1.005-1.030)
[2023-05-22] MEDS: BUDESONIDE 0.5MG/2ML NEB HHN SCH (20:15)
[2023-05-22] MEDS ORDERED: AMITRIPTYLINE 10MG TABLET PO SCH (21:00)
[2023-05-22] MEDS ORDERED: METHYLPREDNISOLONE SOD SUCC 125MG/2ML (ACT-O-VIAL) ONE (21:02)
[2023-05-22] MEDS: CLOTRIMAZOLE 1% VAGINAL CREAM 45GM VG SCH (21:37)
[2023-05-22] MEDS: AMITRIPTYLINE 10MG TABLET PO SCH (23:02)
[2023-05-23] VITALS (66 sets, daily range): BP systolic 100–168; BP diastolic 39–126; PULSE 61–100; RESP 20–36; TEMP 97.8–98.5; O2SAT 88–92
[2023-05-23] MEDS: IPRATROPIUM/ALBUTEROL 0.5-3(2.5)MG/3ML NEB HHN SCH ×7 (00:05→23:57)
[2023-05-23] MEDS: CEFEPIME 2,000 MG in DEXT 5% WATER 100 ML IV SCH ×3 (01:00→16:56)
[2023-05-23 05:18] LABS: CHLORIDE 100 mEq/L (98-107); INDEX HEMOLYSI 1 (1-3); INDEX ICTERIC 1 (1-4); INDEX LIPEMIC 1 (1-3); POTASSIUM 5.2 mEq/L (3.5-5.1); SODIUM 134 mEq/L (136-145)
[2023-05-23 05:26] LABS: ALANINE AMINOTRANSFERASE 77 IU/L (13-61); ASPARTATE AMINOTRANSFERASE 34 IU/L (15-37); BILIRUBIN TOTAL 1.3 mg/dL (0.1-1.0); CALCIUM 7.7 mg/dL (8.5-10.1); CARBON DIOXIDE 27 mEq/L (21-32); CREATININE 0.5 mg/dL (0.6-1.3); GLUCOSE 285 mg/dL (70-105); PROTEIN TOTAL 6.3 g/dL (6.0-8.3); UREA NITROGEN BLOOD 20 mg/dL (7-21)
[2023-05-23] MEDS: BLOOD SUGAR DIAGNOSTIC STRIP TEST SCH ×4 (06:30→21:00)
[2023-05-23] MEDS: METHYLPREDNISOLONE SOD SUCC 125MG/2ML (ACT-O-VIAL) IV SCH ×3 (06:47→21:36)
[2023-05-23] MEDS: INSULIN LISPRO 100 UNITS/ML SUBCUT SCH ×4 (07:06→22:54)
[2023-05-23 08:39] LABS: HEMATOCRIT 42.2 % (36.0-48.0); HEMOGLOBIN 13.8 g/dL (12.0-16.0); MEAN CORPUSCULAR HEMOGLOBIN 34.4 pg (28.0-32.0); MEAN CORPUSCULAR HGB CONC 32.8 g/dL (31.0-37.0); MEAN CORPUSCULAR VOLUME 104.8 fL (81.0-99.0); PLATELET 149 x1000/uL (130-400); RED BLOOD CELL COUNT 4.02 mill/uL (4.2-5.4); RED CELL DISTRIBUTION WIDTH 13.4 % (11.6-14.6); WHITE BLOOD COUNT 12.2 x1000/uL (4.5-11.0)
[2023-05-23] MEDS: BUDESONIDE 0.5MG/2ML NEB HHN SCH (09:30)
[2023-05-23 09:55] LABS: BG BASE EXCESS 3.8 mmol/L (-2.0-2.0); BG CARBOXYHEMOGLOBIN 1.4 % (0.5-1.5); BG DEOXYHEMOGLOBIN 10.8 % (0.0-5.0); BG FRACTION INSPIRED OXYGEN 100; BG HCO3 ACT 27.2 mmol/L (22.0-26.0); BG METHEMOGLOBIN 0.3 % (0.0-1.5); BG OXYHEMOGLOBIN 87.5 % (94.0-97.0); BG PCO2 37.3 mmHg (35.0-45.0); BG PH 7.481 (7.350-7.450); BG PO2 54.5 mmHg (75.0-100.0); BG SAMPLE SITE RIGHT RADIAL; BG TOTAL HEMOGLOBIN 14.6 g/dL (12.0-18.0); BG VENT MODE HIGH FLOW
[2023-05-23] MEDS: FAMOTIDINE 20MG TABLET PO SCH ×2 (09:57→21:13)
[2023-05-23] MEDS: CALCIUM CARBONATE/VITAMIN D3 500MG TABLET PO SCH ×2 (09:57→16:56)
[2023-05-23] MEDS: ENOXAPARIN 40MG/0.4ML SYR SUBCUT SCH (09:57)
[2023-05-23] MEDS: OFEV 150 MG XX SCH ×2 (09:58→21:13)
[2023-05-23] MEDS: LORATADINE 10MG TABLET PO SCH (10:03)
[2023-05-23] MEDS: INSULIN GLARGINE 100 UNITS/ML SUBCUT SCH (10:06)
[2023-05-23] MEDS ORDERED: FUROSEMIDE 40MG/4ML VIAL IVP NR (11:30)
[2023-05-23] MEDS: GUAIFENESIN 200MG/10ML SUGAR FREE UDC PO PRN (15:18)
[2023-05-23] MEDS: AMITRIPTYLINE 10MG TABLET PO SCH (21:13)
[2023-05-23] MEDS: CLOTRIMAZOLE 1% VAGINAL CREAM 45GM VG SCH (21:14)
[2023-05-24] VITALS (29 sets, daily range): BP systolic 108–152; BP diastolic 57–118; PULSE 60–77; RESP 18–30; TEMP 97.1–98; O2SAT 88–96
[2023-05-24] MEDS: CEFEPIME 2,000 MG in DEXT 5% WATER 100 ML IV SCH ×3 (01:00→17:13)
[2023-05-24] MEDS: ACETAMINOPHEN 325MG TABLET PO PRN ×3 (03:05→14:53)
[2023-05-24] MEDS: IPRATROPIUM/ALBUTEROL 0.5-3(2.5)MG/3ML NEB HHN SCH ×5 (04:30→20:51)
[2023-05-24 05:25] LABS: HEMATOCRIT. 39.4 % (36.0-48.0); HEMOGLOBIN. 13.2 g/dL (12.0-16.0); MEAN CORPUSCULAR HEMOGLOBIN 34.6 pg (28.0-32.0); MEAN CORPUSCULAR HGB CONC 33.5 g/dL (31.0-37.0); MEAN CORPUSCULAR VOLUME 103.3 fL (81.0-99.0); MEAN PLATELET VOLUME 9.7 fl (7.4-10.4); PLATELET 169 x1000/uL (130-400); RED BLOOD CELL COUNT 3.82 mill/uL (4.2-5.4); RED CELL DISTRIBUTION WIDTH 13.9 % (11.6-14.6); WHITE BLOOD COUNT 12.8 x1000/uL (4.5-11.0)
[2023-05-24 05:27] LABS: DIFFERENTIAL COMMENT 1
[2023-05-24] MEDS: METHYLPREDNISOLONE SOD SUCC 125MG/2ML (ACT-O-VIAL) IV SCH ×3 (05:31→21:20)
[2023-05-24 05:54] LABS: CHLORIDE 101 mEq/L (98-107); INDEX HEMOLYSI 1 (1-3); INDEX ICTERIC 1 (1-4); INDEX LIPEMIC 1 (1-3); POTASSIUM 5.3 mEq/L (3.5-5.1); SODIUM 134 mEq/L (136-145)
[2023-05-24 06:00] LABS: CALCIUM 7.3 mg/dL (8.5-10.1); CARBON DIOXIDE 23 mEq/L (21-32); CREATININE 0.5 mg/dL (0.6-1.3); GLUCOSE 220 mg/dL (70-105); UREA NITROGEN BLOOD 25 mg/dL (7-21)
[2023-05-24] MEDS: BLOOD SUGAR DIAGNOSTIC STRIP TEST SCH ×4 (06:38→20:50)
[2023-05-24] MEDS: INSULIN LISPRO 100 UNITS/ML SUBCUT SCH ×4 (06:41→21:22)
[2023-05-24] MEDS: ENOXAPARIN 40MG/0.4ML SYR SUBCUT SCH (08:25)
[2023-05-24] MEDS: FAMOTIDINE 20MG TABLET PO SCH ×2 (08:25→21:20)
[2023-05-24] MEDS: FUROSEMIDE 20MG/2ML VIAL IVP SCH (08:25)
[2023-05-24] MEDS: OFEV 150 MG XX SCH ×2 (08:25→21:20)
[2023-05-24] MEDS: LORATADINE 10MG TABLET PO SCH (08:25)
[2023-05-24] MEDS: CALCIUM CARBONATE/VITAMIN D3 500MG TABLET PO SCH ×2 (08:25→17:13)
[2023-05-24 09:03] LABS: BG BASE EXCESS 4.3 mmol/L (-2.0-2.0); BG CARBOXYHEMOGLOBIN 1.5 % (0.5-1.5); BG DEOXYHEMOGLOBIN 10.5 % (0.0-5.0); BG FRACTION INSPIRED OXYGEN 100; BG HCO3 ACT 27.5 mmol/L (22.0-26.0); BG METHEMOGLOBIN 0.1 % (0.0-1.5); BG OXYGEN SATURATION 89.3 % (92.0-98.5); BG OXYHEMOGLOBIN 87.9 % (94.0-97.0); BG PCO2 36.4 mmHg (35.0-45.0); BG PH 7.496 (7.350-7.450); BG PO2 55.2 mmHg (75.0-100.0); BG SAMPLE SITE RIGHT BRACHIAL; BG TOTAL HEMOGLOBIN 14.6 g/dL (12.0-18.0); BG VENT MODE HIGH FLOW
[2023-05-24] MEDS: INSULIN GLARGINE 100 UNITS/ML SUBCUT SCH (09:12)
[2023-05-24] MEDS ORDERED: KETOROLAC 30MG/ML VIAL IV NR (09:45)
[2023-05-24] MEDS ORDERED: LACTULOSE 20G/30ML UDC PO PRN (11:15)
[2023-05-24] MEDS ORDERED: BISACODYL 5MG TABLET PO PRN (11:15)
[2023-05-24] MEDS ORDERED: LACTULOSE 20G/30ML UDC PO NR (11:15)
[2023-05-24] MEDS ORDERED: SODIUM POLYSTYRENE SULFONATE 15 G/60 ML BOT PO NR (11:30)
[2023-05-24 11:34] LABS: PLATELET ESTIMATE NORMAL
[2023-05-24] MEDS: POLYVINYL ALCOHOL OPHTH DROPS 15ML BOTHEYE SCH ×3 (12:29→23:22)
[2023-05-24] MEDS: MELATONIN 3MG TABLET PO PRN (21:20)
[2023-05-24] MEDS: CLOTRIMAZOLE 1% VAGINAL CREAM 45GM VG SCH (21:20)
[2023-05-24] MEDS: AMITRIPTYLINE 10MG TABLET PO SCH (21:21)
[2023-05-25] VITALS (25 sets, daily range): BP systolic 110–154; BP diastolic 51–98; PULSE 60–84; RESP 6–34; TEMP 98.1–98.7; O2SAT 91–94
[2023-05-25] MEDS: IPRATROPIUM/ALBUTEROL 0.5-3(2.5)MG/3ML NEB HHN SCH ×5 (00:49→20:40)
[2023-05-25 05:10] LABS: HEMATOCRIT. 42.2 % (36.0-48.0); HEMOGLOBIN. 14.1 g/dL (12.0-16.0); MEAN CORPUSCULAR HEMOGLOBIN 34.9 pg (28.0-32.0); MEAN CORPUSCULAR HGB CONC 33.3 g/dL (31.0-37.0); MEAN CORPUSCULAR VOLUME 104.8 fL (81.0-99.0); MEAN PLATELET VOLUME 9.8 fl (7.4-10.4); PLATELET 176 x1000/uL (130-400); RED BLOOD CELL COUNT 4.03 mill/uL (4.2-5.4); RED CELL DISTRIBUTION WIDTH 13.7 % (11.6-14.6); WHITE BLOOD COUNT 15.8 x1000/uL (4.5-11.0)
[2023-05-25 05:15] LABS: CHLORIDE 100 mEq/L (98-107); INDEX HEMOLYSI 1 (1-3); INDEX ICTERIC 1 (1-4); INDEX LIPEMIC 1 (1-3); SODIUM 134 mEq/L (136-145)
[2023-05-25] MEDS: METHYLPREDNISOLONE SOD SUCC 125MG/2ML (ACT-O-VIAL) IV SCH ×2 (05:19→17:46)
[2023-05-25] MEDS: POLYVINYL ALCOHOL OPHTH DROPS 15ML BOTHEYE SCH ×3 (05:19→18:37)
[2023-05-25 05:20] LABS: CALCIUM 8.2 mg/dL (8.5-10.1); CARBON DIOXIDE 30 mEq/L (21-32); CREATININE 0.5 mg/dL (0.6-1.3); GLUCOSE 92 mg/dL (70-105); UREA NITROGEN BLOOD 29 mg/dL (7-21)
[2023-05-25 05:22] LABS: DIFFERENTIAL COMMENT 1
[2023-05-25] MEDS: BLOOD SUGAR DIAGNOSTIC STRIP TEST SCH ×3 (05:49→16:30)
[2023-05-25] MEDS: INSULIN LISPRO 100 UNITS/ML SUBCUT SCH ×3 (05:53→17:00)
[2023-05-25 07:46] LABS: BG BASE EXCESS 3.7 mmol/L (-2.0-2.0); BG CARBOXYHEMOGLOBIN 0.8 % (0.5-1.5); BG DEOXYHEMOGLOBIN 9.7 % (0.0-5.0); BG HCO3 ACT 27.2 mmol/L (22.0-26.0); BG METHEMOGLOBIN 0.3 % (0.0-1.5); BG OXYGEN SATURATION 90.2 % (92.0-98.5); BG OXYHEMOGLOBIN 89.2 % (94.0-97.0); BG PCO2 37.6 mmHg (35.0-45.0); BG PH 7.477 (7.350-7.450); BG PO2 60.9 mmHg (75.0-100.0); BG SAMPLE SITE RIGHT RADIAL; BG TOTAL HEMOGLOBIN 15.2 g/dL (12.0-18.0); BG VENT MODE VAPOTHERM
[2023-05-25] MEDS: KETOROLAC 30MG/ML VIAL IV NR ×2 (08:30→09:00)
[2023-05-25] MEDS: OFEV 150 MG XX SCH ×2 (09:00→20:05)
[2023-05-25] MEDS: INSULIN GLARGINE 100 UNITS/ML SUBCUT SCH (10:00)
[2023-05-25] MEDS: ENOXAPARIN 40MG/0.4ML SYR SUBCUT SCH (10:26)
[2023-05-25] MEDS: FUROSEMIDE 20MG/2ML VIAL IVP SCH (10:26)
[2023-05-25] MEDS: FAMOTIDINE 20MG TABLET PO SCH ×2 (10:27→20:05)
[2023-05-25] MEDS: CALCIUM CARBONATE/VITAMIN D3 500MG TABLET PO SCH ×2 (10:27→17:51)
[2023-05-25] MEDS: LORATADINE 10MG TABLET PO SCH (10:27)
[2023-05-25 12:50] LABS: INDEX HEMOLYSI 1 (1-3)
[2023-05-25 12:58] LABS: CREATINE KINASE 73 IU/L (26-192); TROPONIN I HIGH SENSITIVITY 13 ng/L (<54)
[2023-05-25] MEDS: ACETAMINOPHEN 325MG TABLET PO PRN ×2 (15:48→16:48)
[2023-05-25 16:14] LABS: PLATELET ESTIMATE NORMAL
[2023-05-25] MEDS: AMITRIPTYLINE 10MG TABLET PO SCH (20:05)
[2023-05-25] MEDS ORDERED: ACETAMINOPHEN 325MG TABLET PO PRN (20:15)
== END 2023-05-25 22:20 | disposition short-term general hospital (02) | DRG 720 ==
LOC: ER 14:52 → MICUSO 20:19 → EDBEDREQ 20:32 → EDBEDREQTM 20:32 → 7WST 05-13 05:22 → MICUSO 05-16 18:12
PROVIDERS: ADMIT Internal Medicine; ATTEND Internal Medicine
PROC: 5A09357 Assistance with Respiratory Ventilation, Less than 24 Consecutive Hours, Continuous Positive Airway Pressure (ICD-10-PCS; 2023-05-17)
PROC: 5A0935A Assistance with Respiratory Ventilation, Less than 24 Consecutive Hours, High Flow/Velocity Cannula (ICD-10-PCS; principal; 2023-05-18)
PROC: 5A09357 Assistance with Respiratory Ventilation, Less than 24 Consecutive Hours, Continuous Positive Airway Pressure (ICD-10-PCS; 2023-05-18)
PROC: 5A0935A Assistance with Respiratory Ventilation, Less than 24 Consecutive Hours, High Flow/Velocity Cannula (ICD-10-PCS; 2023-05-19)
PROC: 5A0955A Assistance with Respiratory Ventilation, Greater than 96 Consecutive Hours, High Flow/Velocity Cannula (ICD-10-PCS; 2023-05-19)
PROC: 5A09357 Assistance with Respiratory Ventilation, Less than 24 Consecutive Hours, Continuous Positive Airway Pressure (ICD-10-PCS; 2023-05-19)
PROC: 5A0935A Assistance with Respiratory Ventilation, Less than 24 Consecutive Hours, High Flow/Velocity Cannula (ICD-10-PCS; 2023-05-25)
DX: A41.89 Other specified sepsis (principal); J96.21 Acute and chronic respiratory failure with hypoxia; J12.82 Pneumonia due to coronavirus disease 2019; J15.1 Pneumonia due to Pseudomonas; U07.1 COVID-19; E87.20 Acidosis, unspecified; E44.1 Mild protein-calorie malnutrition; J84.10 Pulmonary fibrosis, unspecified; K76.0 Fatty (change of) liver, not elsewhere classified; M05.10 Rheumatoid lung disease with rheumatoid arthritis of unspecified site; I10 Essential (primary) hypertension; E11.9 Type 2 diabetes mellitus without complications; D72.819 Decreased white blood cell count, unspecified; E87.1 Hypo-osmolality and hyponatremia; R74.01 Elevation of levels of liver transaminase levels; D75.89 Other specified diseases of blood and blood-forming organs; D53.9 Nutritional anemia, unspecified; D63.8 Anemia in other chronic diseases classified elsewhere; Z79.899 Other long term (current) drug therapy; Z79.84 Long term (current) use of oral hypoglycemic drugs; Z79.4 Long term (current) use of insulin; Z68.24 Body mass index [BMI] 24.0-24.9, adult
CPT/HCPCS: 36415; 36600; 71045; 71275; 76700; 80048; 80053; 80061; 80202; 80305; 81003; 82375; 82550; 82553; 82607; 82728; 82746; 82805; 82962; 83036; 83605; 83735; 83880; 84100; 84145; 84439; 84443; 84484; 85025; 85027; 85379; 85384; 87070; 87077; 87186; 87426; 93005; 93970; 94640; 94660; 99285; A6261; C9113; C9803; J0456; J0692; J0696; J1100; J1650; J1815; J1885; J1940; J2405; J2930; J3370; J7060; J7608; J7626; A4315